=== PATIENT | male | born 1995 | race Caucasian/White ===

== ENCOUNTER 2018-09-20 21:56 | Emergency (ER) | payer SELFPAY ==
--- NOTE | 2018-09-20 22:30 | ED Physician Documentation ---
Sore Throat/Dental Pain - HPI Stated Complaint: sore throat and headache Chief Complaint: Sore Throat Additional Information: Patient presents to ED with a 4 day history of sore throat, headache and fever (102.0). He denies cough, bodyaches, nasal congestion. Onset: days ago (4) Associated Symptoms: fever, sore throat, moderate. denies: runny nose - ROS CONST: no problems CVS/RESP: denies: shortness of breath GI/: nausea. denies: vomiting MS/SKIN/LYMPH: denies: muscle aches, rash NEURO/PSYCH: headache - PAST HX Past History: none Other History: none Allergies/Adverse Reactions: Allergies Allergy/AdvReac Type Severity Reaction Status Date / Time Penicillins AdvReac Intermediate Unknown Unverified 06/18/16 08:51 Home Medications: Ambulatory Orders Medication Instructions Recorded Azithromycin 500 mg PO DAILY #5 tablet 09/20/18 - SOCIAL HX Smoking History: non-smoker Alcohol Use: none Drug Use: none - FAMILY HX Family History: No - VITAL SIGNS Vital Signs: Vital Signs Temp Pulse Resp BP Pulse Ox 100.0 F H 108 H 20 147/80 95 09/20/18 22:13 09/20/18 22:13 09/20/18 22:13 09/20/18 22:13 09/20/18 22:13 - REVIEWED ASSESSMENTS Nursing Assessment Reviewed: Yes Vitals Reviewed: Yes ED Results Lab/Radiology - Lab Results Lab Results: Lab Results 09/20/18 22:50 WBC 8.30 K/ul K/ul (4.00-12.00) RBC 4.72 M/ul M/ul (3.90-5.20) Hgb 13.3 g/dL g/dL (12.0-18.0) Hct 39.5 % % (37.0-53.0) MCV 84.0 fl fl (80.0-100.0) MCH 28.2 pg pg (28.0-34.0) MCHC 33.7 g/dL g/dL (30.0-36.0) RDW 12.5 % % (11.3-14.3) Plt Count 230 K/mm3 K/mm3 (130-400) Neut % (Auto) 67.7 % % (39.0-79.0) Lymph % (Auto) 19.2 % % (16.0-50.0) [place] % (Auto) 11.7 % H % (0.0-11.0) Eos % (Auto) 0.8 % % (0.0-6.8) Baso % (Auto) 0.6 (0.0-1.5) Neut # (Auto) 5.6 # k/uL # k/uL (1.4-7.7) Lymph # (Auto) 1.6 # k/uL # k/uL (0.6-4.0) [place] # (Auto) 1.0 # k/uL H # k/uL (0.0-0.9) Eos # (Auto) 0.1 # k/uL # k/uL (0.0-0.6) Baso # (Auto) 0.1 # k/uL # k/uL (0.0-0.5) - Orders Orders: ED Orders Category Date Time Status CBC/PLATELET/DIFF Routine Lab 09/20/18 22:50 Completed GRP A STREP SCREEN Stat Lab 09/20/18 21:45 Received INFLUENZA A&B Stat Lab 09/20/18 21:45 Received MONOTEST Stat Lab 09/20/18 21:45 Received Sore throat Physical Exam - EXAM General Appearance: no acute distress, alert Eyes: PERRL Respiratory: no resp. distress, breath sounds nml, respiratory distress CVS: reg. rate & rhythm, heart sounds nml Abdomen: soft, normal bowel sounds, no distension Extremities: non-tender Skin: warm/dry, normal color Neuro/Psych: oriented x3, mood/affect nml Discharge Clincal Impression: Pharyngitis Qualifiers: Pharyngitis/tonsillitis etiology: other specified organisms Qualified Code(s): J02.8 - Acute pharyngitis due to other specified organisms Prescriptions: Azithromycin 500 mg PO DAILY #5 tablet Referrals: Primary Doctor,No [Primary Care Provider] - 2 Days Additional Instructions: 1. Take antibiotic as directed 2. Warm salt water gargles after every meal 3. Follow up with PCP within 1 week 4. Tylenol and/or Ibuprofen as needed for fever/pain 5. Return to ER for new or worsening symptoms. Condition: Stable Disposition: 01 HOME, SELF-CARE Decision to Admit: NO Date of Decison to Admit: 09/20/18 Decision Time: 23:23
[2018-09-20 23:08] LABS: MEAN CORPUSCULAR HEMOGLOBIN 28.2 pg (28.0-34.0)
[2018-09-20 23:09] LABS: BASOPHILS % 0.6 (0.0-1.5); EOSINOPHILS % 0.8 % (0.0-6.8); MONOCYTES % 11.7 % (0.0-11.0); NEUTROPHILS # 5.6 # k/uL (1.4-7.7)
[2018-09-20] MEDS ORDERED: AZITHROMYCIN 250 MG TABLET PO ONE (23:16)
[2018-09-20 23:35] VITALS: BP 131/65
== END 2018-09-20 23:34 | disposition home or self-care (01) ==
LOC: ED 21:56
DX: J02.8 Acute pharyngitis due to other specified organisms (principal)
CPT/HCPCS: 36415; 85025; 86308; 87070; 87400; 87880; 99282; 99283